=== PATIENT | female | born 1985 | race Two or more races ===

== ENCOUNTER 2019-04-23 15:12 | Outpatient (RCR) | payer OTHER | END 2019-05-14 | disposition home or self-care (01) | LOC: WCC 15:12 | DX: T86.821 Skin graft (allograft) (autograft) failure (principal) | CPT/HCPCS: G0277; G0463 ==

== ENCOUNTER 2019-05-15 09:27 | Outpatient (RCR) | payer OTHER | END 2019-06-13 | disposition home or self-care (01) | LOC: WCC 09:27 | DX: T86.821 Skin graft (allograft) (autograft) failure (principal) | CPT/HCPCS: G0277; G0463 ==